=== PATIENT | male | born 1960 | race Caucasian/White ===

== ENCOUNTER 2020-02-20 16:12 | Emergency (ER) | payer SELFPAY ==
--- NOTE | 2020-02-21 17:32 | DI.VRAD_ITS ---
PROCEDURE INFORMATION: Exam: XR Chest, 1 View Exam date and time: 02/21/2020 4:47 PM Age: 59 years old Clinical indication: Other: Post intibation TECHNIQUE: Imaging protocol: XR of the chest Views: 1 view. COMPARISON: No relevant prior studies available. FINDINGS: Tubes, catheters and devices: There is an endotracheal tube in place with its tip residing less than 1 cm superior to the jasmine. Lungs: There is patchy perihilar airspace opacity within the right lung. There is also mild patchy left infrahilar airspace opacity. Findings suggest mild aspiration or pneumonia. Pleural space: No pneumothorax is identified, although evaluation is limited, as the lung apices are not completely imaged on this exam. No layering pleural effusions are identified. Heart/Mediastinum: Unremarkable. No cardiomegaly. Bones/joints: There is a fracture of the right lateral 5th rib, with up to 1 cm lateral displacement of the distal fracture fragment. IMPRESSION: 1. Tip of endotracheal tube resides less than 1 cm superior to the jasmine. Consider retraction. 2. Mildly displaced right lateral 5th rib fracture. 3. No pneumothorax identified on this limited exam, as described above. 4. Patchy airspace opacities as described above, suggesting aspiration or pneumonia. Findings were discussed with WILBERT Mckeon at 02/21/2020 5:29 PM EST. Dictated and Authenticated by: Fantasma Cramer MD. Ordering:HASMUKH Resendez MD
--- NOTE | 2020-02-21 17:56 | NUR.NOTE ---
This patient account was put on tracker in error.Nursing Note:
--- NOTE | 2020-02-23 07:49 | NUR.NOTE ---
Nursing Note: This patient chart put on a second time by Chanell Solano while working on the account. It will be removed again from the final tracker. Vane Jones
== END 2020-02-21 17:57 | disposition other institution (70) ==
LOC: ER 02-22 18:42
PROVIDERS: Emergency Provider Physician Assistant
DX: Z53.21 Procedure and treatment not carried out due to patient leaving prior to being seen by health care provider (principal)
CPT/HCPCS: 80053; 82805; 83735; 84484; 85025; 85610